=== PATIENT | male | born 1975 | race Hispanic/Latino ===

== ENCOUNTER 2024-05-21 07:08 | Day surgery (SDC) | payer SELFPAY ==
[2024-05-11 15:26] VITALS: BMI 27.3
[2024-05-21] MEDS ORDERED: cefTRIAXone (ROCEPHIN) 2 GM VIAL ONE (07:47)
[2024-05-21] MEDS ORDERED: Sodium Chloride 0.9% 100 ML ONE (07:48)
[2024-05-21] MEDS ORDERED: Lidocaine 2% PF 5 ML VIAL ONE (07:59)
[2024-05-21] MEDS ORDERED: PROPOFOL 20 ML ONE ×2 (07:59→10:06)
[2024-05-21] MEDS ORDERED: Lidocaine 2% PF 100 mg/5 ml Syringe ONE (07:59)
[2024-05-21] MEDS ORDERED: Midazolam HCl 2 mg/2 ml Vial ONE (08:56)
[2024-05-21] MEDS ORDERED: fentaNYL PF 100 MCG/2 ML SYRINGE ONE (08:56)
[2024-05-21] MEDS ORDERED: Rocuronium Bromide 10 MG/ML (10ML VIAL) ONE (08:56)
[2024-05-21] MEDS ORDERED: Iopamidol 15 ML ONE (08:57)
[2024-05-21] MEDS ORDERED: Ondansetron PF 4 MG/2 ML Vial ONE (08:59)
[2024-05-21] MEDS ORDERED: Dexamethasone 4 mg/ml Vial ONE (08:59)
[2024-05-21] MEDS ORDERED: PHENYLEPHRINE-NS 100 MCG/ML 10 ML SYRINGE ONE (09:31)
[2024-05-21] MEDS ORDERED: SUGAMMADEX SODIUM 200 MG/2 ML VIAL ONE (09:36)
[2024-05-21] MEDS ORDERED: Ketorolac Tromethamine 30 MG (1 mL) VIAL ONE (10:05)
[2024-05-21] MEDS ORDERED: Phenazopyridine HCl 100 MG TAB ONE (10:41)
[2024-05-21] MEDS ORDERED: Oxybutynin 5 MG TAB ONE (10:41)
== END 2024-05-21 13:00 | disposition home or self-care (01) ==
LOC: SDC 07:08
PROVIDERS: ATTEND Urology
PROC: 0TC18ZZ Extirpation of Matter from Left Kidney, Via Natural or Artificial Opening Endoscopic (ICD-10-PCS; principal; 2024-05-21)
PROC: 0T778DZ Dilation of Left Ureter with Intraluminal Device, Via Natural or Artificial Opening Endoscopic (ICD-10-PCS; principal; 2024-05-21)
DX: N20.2 Calculus of kidney with calculus of ureter (principal); I10 Essential (primary) hypertension; E11.9 Type 2 diabetes mellitus without complications; E78.5 Hyperlipidemia, unspecified; Z79.84 Long term (current) use of oral hypoglycemic drugs; Z79.899 Other long term (current) drug therapy
CPT/HCPCS: 74420; 82365; 88300; C1747; J0696; J1100; J1885; J2003; J2250; J2405; J2704; Q9967